=== PATIENT | female | born 1980 | race African-American/Black ===

== ENCOUNTER 2017-01-30 16:49 | Emergency (ER) | payer MEDICARE ==
[~2017-01-30] VITALS: Ht 167.6 cm; Wt 110.6 kg
[2017-01-30 20:14] VITALS: BP 129/65
== END 2017-01-30 20:16 | disposition home or self-care (01) ==
LOC: ED 19:54
DX: N93.8 Other specified abnormal uterine and vaginal bleeding (principal)
CPT/HCPCS: 36415; 84703; 85025; 99284

== ENCOUNTER 2017-04-06 13:25 | Emergency (ER) | payer MEDICARE ==
[~2017-04-06] VITALS: Ht 162.6 cm; Wt 82.5 kg
[2017-04-06] MEDS ORDERED: SODIUM CHLORIDE 0.9% 1,000ML IVBOLUS ONE (14:30)
[2017-04-06] MEDS ORDERED: SODIUM CHLORIDE FLUSH 10ML SYR IVF ONE (14:30)
[2017-04-06] MEDS ORDERED: MECLIZINE CHEWABLE 25 MG TAB PO ONE (14:30)
[2017-04-06] MEDS ORDERED: ONDANSETRON 2MG/ML, 2ML IVPush ONE (14:30)
[2017-04-06 14:46] LABS: BLOOD UREA NITROGEN 9 mg/dL (7-18)
[2017-04-06 14:47] LABS: HEMATOCRIT 35.8 % (34.6-47.8); HEMOGLOBIN 11.4 g/dL (11.7-16.4); WHITE BLOOD COUNT 6.1 x10^3/uL (3.4-10)
[2017-04-06] MEDS ORDERED: MECLIZINE CHEWABLE 25 MG TAB ONE (14:51)
[2017-04-06] MEDS ORDERED: ONDANSETRON 2MG/ML, 2ML ONE (14:51)
[2017-04-06 16:28] VITALS: BP 134/78
== END 2017-04-06 18:10 | disposition home or self-care (01) ==
LOC: ED 14:36
DX: R11.2 Nausea with vomiting, unspecified (principal); R42 Dizziness and giddiness; Z79.82 Long term (current) use of aspirin; Z88.8 Allergy status to other drugs, medicaments and biological substances
CPT/HCPCS: 36415; 80048; 81001; 82040; 84703; 85025; 96361; 96374; 99285; J2405; J7030

== ENCOUNTER 2017-04-19 17:21 | Emergency (ER) | payer MEDICARE ==
[~2017-04-19] VITALS: Ht 167.6 cm; Wt 84.0 kg
[2017-04-19 18:44] LABS: PATH.CAST-FLAG NOT PRESENT; SPERM-FLAG NOT PRESENT; SRC-FLAG NOT PRESENT; XTAL-FLAG NOT PRESENT; YLC-FLAG NOT PRESENT
[2017-04-19 18:55] LABS: HCG UR OBC PASS
[2017-04-19] MEDS ORDERED: IBUPROFEN 200 MG TABLET PO ONE (19:00)
[2017-04-19] MEDS ORDERED: IBUPROFEN 200 MG TABLET ONE (19:06)
[2017-04-19] MEDS ORDERED: CEFDINIR 300 MG CAPSULE PO ONE (19:30)
[2017-04-19 19:59] VITALS: BP 114/76
== END 2017-04-19 20:01 | disposition home or self-care (01) ==
LOC: ED 18:35
DX: N30.00 Acute cystitis without hematuria (principal); M54.5 Low back pain
CPT/HCPCS: 81001; 81025; 87086; 99284

== ENCOUNTER 2017-06-08 16:08 | Emergency (ER) | payer MEDICARE ==
[~2017-06-08] VITALS: Ht 167.6 cm; Wt 84.0 kg
[2017-06-08 16:12] VITALS: BP 110/80
[2017-06-08] MEDS ORDERED: OLAN2.5T3 PO (16:24)
[2017-06-08] MEDS ORDERED: IBUP-1484 PO (16:24)
== END 2017-06-08 16:58 | disposition left against medical advice (07) ==
LOC: ED 16:52
DX: N94.89 Other specified conditions associated with female genital organs and menstrual cycle (principal); Z88.8 Allergy status to other drugs, medicaments and biological substances
CPT/HCPCS: 99283

== ENCOUNTER 2017-08-12 13:34 | Emergency (ER) | payer MEDICARE ==
[~2017-08-12] VITALS: Ht 167.6 cm; Wt 108.5 kg
[~2017-08-12 13:34] MED LIST: IBUP-1484 PO; OLAN2.5T3 PO
[2017-08-12 13:47] VITALS: BP 128/84
[2017-08-12 14:58] LABS: BASOPHILS # (AUTO) 0.03 x10^3/uL (0-0.1); BASOPHILS % (AUTO) 1 % (0-1); EOSINOPHILS # (AUTO) 0.14 x10^3/uL (0-0.4); EOSINOPHILS % (AUTO) 3 % (1-7); LYMPHOCYTES # (AUTO) 2.04 x10^3/uL (1-3.4); LYMPHOCYTES % (AUTO) 40 % (22-44); MD NO; MEAN CORPUSCULAR HEMOGLOBIN 25.9 pg (27.0-34.8); MEAN CORPUSCULAR HGB CONC 31.8 g/dL (32.4-35.8); MEAN CORPUSCULAR VOLUME 81.4 fL (80-100); MEAN PLATELET VOLUME 7.6 fL (7.4-10.4); MONOCYTES # (AUTO) 0.39 x10^3/uL (0.2-0.8); MONOCYTES % (AUTO) 8 % (2-9); NEUTROPHILS # (AUTO) 2.43 x10^3/uL (1.8-6.8); NEUTROPHILS % (AUTO) 48 % (42-75); PLATELET COUNT 371 x10^3/uL (130-400); RED BLOOD COUNT 4.38 x10^6/uL (3.82-5.3); RED CELL DISTRIBUTION WIDTH 16.4 % (9.6-15.2)
[2017-08-12] MEDS ORDERED: IBUPROFEN 200 MG TABLET ONE (15:13)
[2017-08-12] MEDS ORDERED: IBUPROFEN 200 MG TABLET PO ONE (15:30)
[2017-08-12 15:37] LABS: MICROSCOPIC INDICATED
[2017-08-12 15:56] LABS: CULTURE INDICATED? NO
== END 2017-08-12 16:23 | disposition home or self-care (01) ==
LOC: ED 16:20
DX: R10.30 Lower abdominal pain, unspecified (principal); N93.9 Abnormal uterine and vaginal bleeding, unspecified
CPT/HCPCS: 36415; 76830; 81001; 84703; 85025; 99285

== ENCOUNTER 2017-10-11 09:45 | Emergency (ER) | payer MEDICARE ==
[~2017-10-11] VITALS: Ht 167.6 cm; Wt 105.5 kg
[2017-10-11 11:56] LABS: HCG UR SG 1.035 (1.003-1.030)
[2017-10-11 11:57] LABS: MICROSCOPIC INDICATED
[2017-10-11 11:58] LABS: CULTURE INDICATED? YES
[2017-10-11 13:54] VITALS: BP 105/81
== END 2017-10-11 13:56 | disposition home or self-care (01) ==
LOC: ED 12:54
DX: N30.00 Acute cystitis without hematuria (principal); N94.4 Primary dysmenorrhea; F17.200 Nicotine dependence, unspecified, uncomplicated
CPT/HCPCS: 81001; 81025; 87077; 87086; 87186; 99284

== ENCOUNTER 2017-12-11 16:43 | Emergency (ER) | payer MEDICARE ==
[~2017-12-11] VITALS: Ht 177.8 cm; Wt 84.0 kg
[2017-12-11 16:48] VITALS: BP 129/84
[2017-12-11 17:08] LABS: BASOPHILS % (AUTO) 2 % (0-1); EOSINOPHILS # (AUTO) 0.13 x10^3/uL (0-0.4); EOSINOPHILS % (AUTO) 2 % (1-7); LYMPHOCYTES # (AUTO) 2.69 x10^3/uL (1-3.4); LYMPHOCYTES % (AUTO) 41 % (22-44); MD NO; MEAN CORPUSCULAR HEMOGLOBIN 25.3 pg (27.0-34.8); MEAN CORPUSCULAR HGB CONC 31.7 g/dL (32.4-35.8); MEAN PLATELET VOLUME 7.5 fL (7.4-10.4); MONOCYTES # (AUTO) 0.46 x10^3/uL (0.2-0.8); MONOCYTES % (AUTO) 7 % (2-9); NEUTROPHILS # (AUTO) 3.23 x10^3/uL (1.8-6.8); NEUTROPHILS % (AUTO) 49 % (42-75); PLATELET COUNT 450 x10^3/uL (130-400); RED BLOOD COUNT 4.51 x10^6/uL (3.82-5.3)
[2017-12-11 17:17] LABS: ALBUMIN 3.8 g/dL (3.4-5.0); ANION GAP 12 mmol/L (5-15); CHLORIDE 107 mmol/L (98-107); CREATININE 1.05 mg/dL (0.55-1.02)
== END 2017-12-11 17:43 | disposition home or self-care (01) ==
LOC: ED 17:30
DX: N92.4 Excessive bleeding in the premenopausal period (principal); F31.9 Bipolar disorder, unspecified; F20.9 Schizophrenia, unspecified
CPT/HCPCS: 36415; 80048; 82040; 84702; 85025; 99284

== ENCOUNTER 2017-12-14 12:03 | Emergency (ER) | payer MEDICARE ==
[~2017-12-14] VITALS: Ht 167.6 cm; Wt 84.1 kg
[2017-12-14 12:06] VITALS: BP 113/69
== END 2017-12-14 12:20 | disposition home or self-care (01) ==
LOC: ED 12:14
DX: N93.9 Abnormal uterine and vaginal bleeding, unspecified (principal)
CPT/HCPCS: 99283

== ENCOUNTER 2018-02-25 10:52 | Emergency (ER) | payer MEDICARE ==
[~2018-02-25] VITALS: Ht 167.6 cm; Wt 105.5 kg
[2018-02-25 11:02] VITALS: BP 134/92
[2018-02-25 11:40] LABS: HCG UR SG 1.021 (1.003-1.030)
== END 2018-02-25 12:04 | disposition home or self-care (01) ==
LOC: ED 11:58
DX: N94.6 Dysmenorrhea, unspecified (principal)
CPT/HCPCS: 81025; 99285

== ENCOUNTER 2018-05-12 08:31 | Emergency (ER) | payer MEDICARE ==
[~2018-05-12] VITALS: Ht 167.6 cm; Wt 100.0 kg
[2018-05-12 09:41] LABS: MEAN CORPUSCULAR VOLUME 70.9 fL (80-100); MEAN PLATELET VOLUME 7.7 fL (7.4-10.4); PLATELET COUNT 481 x10^3/uL (130-400); RED BLOOD COUNT 4.44 x10^6/uL (3.82-5.3); RED CELL DISTRIBUTION WIDTH 19.2 % (9.6-15.2)
[2018-05-12 09:43] LABS: ALBUMIN 3.4 g/dL (3.4-5.0); ANION GAP 9 mmol/L (5-15); CALCIUM 8.3 mg/dL (8.5-10.1); CHLORIDE 111 mmol/L (98-107); CREATININE 0.88 mg/dL (0.55-1.02)
[2018-05-12 09:56] LABS: MD YES
[2018-05-12 09:58] LABS: ANISOCYTOSIS 1+; EOS#(MANUAL) 0.16 x10^3/uL (0.0-0.4); EOS% (MANUAL) 3 % (1-7); HYPOCHROMIA 1+; LYMPH#(MANUAL) 1.78 x10^3/uL (1-3.4); LYMPHS% (MANUAL) 33 % (22-44); MICROCYTOSIS 1+; MONOS#(MANUAL) 0.27 x10^3/uL (0.3-2.7); MONOS% (MANUAL) 5 % (2-9); OVALOCYTES 1+; SEG#(MANUAL) 3.19 x10^3/uL (1.8-6.8); SEGS% (MANUAL) 59 % (42-75)
[2018-05-12 09:59] LABS: <PLATELET ESTIMATE> INCREASED; <PLT MORPHOLOGY> NORMAL PLT MORPH; POLYCHROMASIA 1+; TARGET CELLS 1+
[2018-05-12 12:15] LABS: MICROSCOPIC AUTO
[2018-05-12 12:20] LABS: CULTURE INDICATED? NO
[2018-05-12 13:16] VITALS: BP 120/80
== END 2018-05-12 13:28 | disposition home or self-care (01) ==
LOC: ED 08:56
DX: O46.91 Antepartum hemorrhage, unspecified, first trimester (principal); Z3A.08 8 weeks gestation of pregnancy
CPT/HCPCS: 36415; 80048; 81001; 82040; 84703; 85025; 99284

== ENCOUNTER 2018-05-19 19:30 | Emergency (ER) | payer MEDICARE ==
[~2018-05-19] VITALS: Ht 167.6 cm; Wt 105.3 kg
[2018-05-19 19:41] VITALS: BP 123/80
[2018-05-19] MEDS ORDERED: BACITRACIN ZINC OINT 500U/GM, 0.9 GM ONE (20:30)
[2018-05-19] MEDS ORDERED: DIPH,PERTUSS(ACELL),TET VAC/PF 0.5 ML IM-VACC ONE ×2 (20:30→20:43)
== END 2018-05-19 21:00 | disposition home or self-care (01) ==
LOC: ED 19:59
DX: S91.111D Laceration without foreign body of right great toe without damage to nail, subsequent encounter (principal)
CPT/HCPCS: 90471; 90715

== ENCOUNTER 2018-05-30 15:12 | Emergency (ER) | payer MEDICARE ==
[~2018-05-30] VITALS: Ht 167.6 cm; Wt 104.0 kg
[2018-05-30 15:14] VITALS: BP 133/90
[2018-05-30] MEDS ORDERED: BACITRACIN ZINC OINT 500U/GM, 0.9 GM ONE (15:48)
== END 2018-05-30 15:54 | disposition home or self-care (01) ==
LOC: ED 15:48
DX: Z48.02 Encounter for removal of sutures (principal); F29 Unspecified psychosis not due to a substance or known physiological condition; F20.9 Schizophrenia, unspecified; M54.30 Sciatica, unspecified side
CPT/HCPCS: 99281

== ENCOUNTER 2018-06-09 17:54 | Emergency (ER) | payer MEDICARE ==
[~2018-06-09] VITALS: Ht 167.6 cm; Wt 105.5 kg
[2018-06-09 18:03] VITALS: BP 132/96
== END 2018-06-09 18:44 | disposition home or self-care (01) ==
LOC: ED 18:00
DX: N94.89 Other specified conditions associated with female genital organs and menstrual cycle (principal); G47.00 Insomnia, unspecified; F31.9 Bipolar disorder, unspecified; F20.9 Schizophrenia, unspecified; F17.200 Nicotine dependence, unspecified, uncomplicated
CPT/HCPCS: 99283

== ENCOUNTER 2018-08-05 10:22 | Outpatient (CLI) | payer MEDICARE | END 2018-08-05 10:36 | disposition home or self-care (01) | LOC: LDOP 10:22 | PROVIDERS: ATTEND Obstetrics & Gynecology | DX: Z02.9 Encounter for administrative examinations, unspecified (principal) ==

== ENCOUNTER 2018-08-05 10:40 | Emergency (ER) | payer MEDICARE ==
[~2018-08-05] VITALS: Ht 167.6 cm; Wt 84.0 kg
[2018-08-05 11:11] VITALS: BP 125/72
== END 2018-08-05 12:10 | disposition home or self-care (01) ==
LOC: ED 11:32
DX: N94.6 Dysmenorrhea, unspecified (principal); F20.9 Schizophrenia, unspecified; F31.9 Bipolar disorder, unspecified; Z88.8 Allergy status to other drugs, medicaments and biological substances
CPT/HCPCS: 99281

== ENCOUNTER 2018-10-04 11:54 | Emergency (ER) | payer MEDICARE ==
[~2018-10-04] VITALS: Ht 167.6 cm; Wt 100.2 kg
[2018-10-04 13:10] LABS: BASOPHILS # (AUTO) 0.04 x10^3/uL (0-0.1); BASOPHILS % (AUTO) 1 % (0-1); EOSINOPHILS # (AUTO) 0.16 x10^3/uL (0-0.4); EOSINOPHILS % (AUTO) 4 % (1-7); LYMPHOCYTES # (AUTO) 2.02 x10^3/uL (1-3.4); LYMPHOCYTES % (AUTO) 45 % (22-44); MD NO; MEAN CORPUSCULAR HEMOGLOBIN 22.9 pg (27.0-34.8); MEAN CORPUSCULAR HGB CONC 30.8 g/dL (32.4-35.8); MEAN CORPUSCULAR VOLUME 74.3 fL (80-100); MEAN PLATELET VOLUME 7.7 fL (7.4-10.4); MONOCYTES # (AUTO) 0.42 x10^3/uL (0.2-0.8); MONOCYTES % (AUTO) 9 % (2-9); NEUTROPHILS # (AUTO) 1.81 x10^3/uL (1.8-6.8); NEUTROPHILS % (AUTO) 41 % (42-75); PLATELET COUNT 427 x10^3/uL (130-400); RED BLOOD COUNT 4.29 x10^6/uL (3.82-5.3); RED CELL DISTRIBUTION WIDTH 21.6 % (9.6-15.2)
[2018-10-04 13:22] LABS: ALBUMIN 3.4 g/dL (3.4-5.0); ANION GAP 7 mmol/L (5-15); CALCIUM 8.1 mg/dL (8.5-10.1); CHLORIDE 106 mmol/L (98-107)
[2018-10-04 13:27] LABS: CREATININE 0.99 mg/dL (0.55-1.02)
--- NOTE | 2018-10-04 14:06 | NUR ---
TO ROOM 41
--- NOTE | 2018-10-04 14:13 | NUR ---
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 Pt stated that she had a US and it says there is a fetus in her belly. Pt does not look 9 months . Pt stated that she has vaginal bleeding. Denies pain. Pt is connected to the monitor. Call light within reach.
[2018-10-04 14:29] VITALS: BP 135/68
--- NOTE | 2018-10-04 15:16 | NUR ---
Patient given discharge instructions and they have confirmed that they understand the instructions. Patient ambulatory with steady gait.
== END 2018-10-04 15:18 | disposition home or self-care (01) ==
LOC: ED 14:39
DX: F20.1 Disorganized schizophrenia (principal); N94.4 Primary dysmenorrhea; D50.0 Iron deficiency anemia secondary to blood loss (chronic)
CPT/HCPCS: 36415; 76815; 80048; 82040; 84702; 85025; 86901; 99284

== ENCOUNTER 2019-03-12 06:15 | Emergency (ER) | payer MEDICARE ==
[~2019-03-12] VITALS: Ht 167.6 cm; Wt 101.5 kg
[~2019-03-12 06:15] MED LIST changes: -IBUP-1484 PO; +IBUP-1902 PO
[2019-03-12 06:33] VITALS: BP 127/71
--- NOTE | 2019-03-12 06:34 | NUR ---
"I HAVE ABDOMINAL CRAMPING AND I CAN'T WAKE UP, I JUST KEEP FALLING ASLEEP." STATES "SINCE THE ". MONITORS APPLIED, SIDERAILS UP X2, CALL LIGHT WITHIN REACH
--- NOTE | 2019-03-12 06:37 | NUR ---
PROVIDED PT WITH URINE CUP FOR SAMPLE, PT UP TO RR WITH STEADY GAIT
--- NOTE | 2019-03-12 06:44 | NUR ---
URINE SAMPLE SENT
[2019-03-12 06:53] LABS: MICROSCOPIC INDICATED
--- NOTE | 2019-03-12 06:53 | NUR ---
REPORT TAKEN FROM DARCY DICKINSON. PT RESTING ON [facility]. JUSTICE. [place]. DENIES NEEDS. CALL LIGHT IN REACH.
--- NOTE | 2019-03-12 06:54 | NUR ---
REPORT GIVEN TO DARCY NOYOLA
--- NOTE | 2019-03-12 07:29 | NUR ---
PT TO XRAY AT THIS TIME.
== END 2019-03-12 07:54 | disposition home or self-care (01) ==
LOC: ED 06:34
DX: R10.84 Generalized abdominal pain (principal); K59.00 Constipation, unspecified; F20.9 Schizophrenia, unspecified; F17.200 Nicotine dependence, unspecified, uncomplicated
CPT/HCPCS: 74018; 81001; 99284

== ENCOUNTER 2019-07-05 10:27 | Emergency (ER) | payer MEDICARE ==
[~2019-07-05] VITALS: Ht 167.6 cm; Wt 97.9 kg
[2019-07-05 10:30] VITALS: BP 133/84
--- NOTE | 2019-07-05 11:08 | NUR ---
THIS IS A 39 YO F WHO PRESENTS WITH C/O VAGINAL BLEEDING ONCE EVERY MONTH FOR APPROXIMATELY 10 DAYS. HER RESPIRATIONS ARE EVEN AND UNLABORED. SHE IS IN NO ACUTE DISTRESS.
--- NOTE | 2019-07-05 11:54 | NUR ---
PATIENT BACK FROM US, LABS BEING DRAWN.
[2019-07-05 12:18] LABS: BASOPHILS % (AUTO) 0 % (0-1); EOSINOPHILS % (AUTO) 2 % (1-7); LYMPHOCYTES # (AUTO) 1.93 x10^3/uL (1-3.4); LYMPHOCYTES % (AUTO) 37 % (22-44); MD NO; MEAN CORPUSCULAR HEMOGLOBIN 23.2 pg (27.0-34.8); MEAN CORPUSCULAR HGB CONC 30.6 g/dL (32.4-35.8); MEAN CORPUSCULAR VOLUME 75.8 fL (80-100); MEAN PLATELET VOLUME 7.5 fL (7.4-10.4); MONOCYTES % (AUTO) 8 % (2-9); NEUTROPHILS # (AUTO) 2.72 x10^3/uL (1.8-6.8); NEUTROPHILS % (AUTO) 53 % (42-75); PLATELET COUNT 454 x10^3/uL (130-400); RED BLOOD COUNT 4.36 x10^6/uL (3.82-5.3)
--- NOTE | 2019-07-05 13:04 | NUR ---
Patient given discharge instructions and they have confirmed that they understand the instructions. Patient ambulatory with steady gait.
== END 2019-07-05 13:05 | disposition home or self-care (01) ==
LOC: ED 10:54
DX: N93.9 Abnormal uterine and vaginal bleeding, unspecified (principal)
CPT/HCPCS: 36415; 76830; 84703; 85025; 99284

== ENCOUNTER 2019-07-22 16:27 | Emergency (ER) | payer MEDICARE ==
[~2019-07-22] VITALS: Ht 167.6 cm; Wt 113.0 kg
[2019-07-22 16:52] VITALS: BP 132/69
[2019-07-22 18:04] LABS: ALBUMIN 3.5 g/dL (3.4-5.0); ANION GAP 9 mmol/L (5-15); CALCIUM 8.6 mg/dL (8.5-10.1); CHLORIDE 107 mmol/L (98-107); CREATININE 0.84 mg/dL (0.55-1.02)
[2019-07-22 18:21] LABS: MEAN CORPUSCULAR HEMOGLOBIN 23.2 pg (27.0-34.8); MEAN CORPUSCULAR HGB CONC 30.3 g/dL (32.4-35.8); MEAN CORPUSCULAR VOLUME 76.7 fL (80-100); MEAN PLATELET VOLUME 7.4 fL (7.4-10.4); PLATELET COUNT 420 x10^3/uL (130-400); RED BLOOD COUNT 4.41 x10^6/uL (3.82-5.3); RED CELL DISTRIBUTION WIDTH 19.5 % (9.6-15.2)
--- NOTE | 2019-07-22 18:43 | NUR ---
PT SLEEPING IN GURNEY, EQUAL CHEST RISE AND FALL, CALL LIGHT WTIHIN REACH. AWAITING LAB RESULTS.
[2019-07-22 18:46] LABS: BASOPHILS # (AUTO) 0.05 x10^3/uL (0-0.1); BASOPHILS % (AUTO) 1 % (0-1); EOSINOPHILS # (AUTO) 0.22 x10^3/uL (0-0.4); EOSINOPHILS % (AUTO) 3 % (1-7); LYMPHOCYTES # (AUTO) 2.07 x10^3/uL (1-3.4); LYMPHOCYTES % (AUTO) 32 % (22-44); MD MORPH REVIEW ONLY; MONOCYTES # (AUTO) 0.65 x10^3/uL (0.2-0.8); MONOCYTES % (AUTO) 10 % (2-9); NEUTROPHILS % (AUTO) 55 % (42-75)
[2019-07-22 18:50] LABS: <PLATELET ESTIMATE> INCREASED; HYPOCHROMIA 2+; MICROCYTOSIS 2+; OVALOCYTES 1+; SMALL PLATELETS 1+
== END 2019-07-22 18:54 | disposition home or self-care (01) ==
LOC: ED 18:48
DX: N93.8 Other specified abnormal uterine and vaginal bleeding (principal); D64.9 Anemia, unspecified
CPT/HCPCS: 36415; 80048; 82040; 84703; 85025; 99283

== ENCOUNTER 2019-07-28 07:55 | Outpatient (CLI) | payer MEDICARE | END 2019-07-28 08:01 | disposition home or self-care (01) | LOC: LDOP 07:55 | PROVIDERS: ATTEND Obstetrics & Gynecology | DX: Z02.9 Encounter for administrative examinations, unspecified (principal) ==

== ENCOUNTER 2019-07-28 08:07 | Emergency (ER) | payer MEDICARE ==
[~2019-07-28] VITALS: Ht 167.6 cm; Wt 100.6 kg
[2019-07-28 08:24] VITALS: BP 116/69
--- NOTE | 2019-07-28 08:56 | NUR ---
[facility]
--- NOTE | 2019-07-28 08:57 | NUR ---
PT AMBULATORY TO ROOM WITH STEADY GAIT. PT EDUCATED ON NEED TO CHANGE INTO GOWN, PT REFUSED TO CHANGE I TO GOWN, STATING SHE IS ONLY HERE TO BE DISCHARGED. EDUCATION PROVIDED, PT REFUSING TO ANSWER THIS RN'S QUESTIONS.
--- NOTE | 2019-07-28 09:20 | NUR ---
PA AT BEDSIDE, PT REFUSING TO BE SEEN, STATING HER VISIT "SHOULD BE COVERED PRO-KITA BECAUSE UPSTAIRS SENT ME HERE." PT ELOPED WITHOUT BEING EXAMINED BY PROVIDER. LOOP DRIER OPERATOR AWARE.
== END 2019-07-28 09:23 | disposition left against medical advice (07) ==
LOC: ED 09:17
DX: Z53.21 Procedure and treatment not carried out due to patient leaving prior to being seen by health care provider (principal)

== ENCOUNTER 2019-08-09 13:18 | Emergency (ER) | payer MEDICARE ==
[~2019-08-09] VITALS: Ht 165.1 cm; Wt 108.0 kg
[2019-08-09 13:28] VITALS: BP 136/78
--- NOTE | 2019-08-09 13:32 | NUR ---
PT WAS BIB BY [facility]. STATES "I AM FINE. I JUST WANT TO GET MY HEART CHECKED AND I WANT A NOTE THAT SAYS I CAN WORK." PT HAS REFUSED BLOOD DRAWS TWICE. WARM BLANKET PROVIDED. CALL LIGHT WITHIN REACH
--- NOTE | 2019-08-09 13:45 | NUR ---
PT REFUSED X RAY SHOUTED VERBAL OBSCENITIES TO THE GEOSPATIAL ENGINEER
--- NOTE | 2019-08-09 13:59 | NUR ---
task rn, assisted primary with discharge.
== END 2019-08-09 14:01 | disposition home or self-care (01) ==
LOC: ED 13:55
DX: R06.00 Dyspnea, unspecified (principal); R05 Cough
CPT/HCPCS: 93005; 99283

== ENCOUNTER 2019-08-13 09:41 | Emergency (ER) | payer MEDICARE ==
[~2019-08-13] VITALS: Ht 167.6 cm; Wt 102.6 kg
[2019-08-13 09:44] VITALS: BP 132/81
== END 2019-08-13 10:26 | disposition home or self-care (01) ==
LOC: ED 10:15
DX: J02.9 Acute pharyngitis, unspecified (principal)
CPT/HCPCS: 93005; 99283

== ENCOUNTER 2019-08-31 06:13 | Emergency (ER) | payer MEDICARE ==
[~2019-08-31] VITALS: Ht 167.6 cm; Wt 102.5 kg
[2019-08-31 06:17] VITALS: BP 125/86
--- NOTE | 2019-08-31 06:57 | NUR ---
PT CARE AUSSUMED. PT RESTING ON GURNEY. NO DISTRESS. PT AWARE OF PENDING CHEST XRAY. PT REQUESTS FACE MASK. MASK GIVEN
== END 2019-08-31 09:10 | disposition home or self-care (01) ==
LOC: ED 07:02
DX: B35.4 Tinea corporis (principal); B34.9 Viral infection, unspecified; Z98.51 Tubal ligation status
CPT/HCPCS: 71046; 99283

== ENCOUNTER 2020-09-10 05:18 | Emergency (ER) | payer MEDICARE ==
[~2020-09-10] VITALS: Ht 167.6 cm; Wt 100.5 kg
--- NOTE | 2020-09-10 06:05 | NUR ---
Pt in room, agitated, yelling at times, difficulty to get information from. Pt free of harm. Will monitor.
[2020-09-10 06:15] LABS: HCG UR SG 1.027 (1.003-1.030)
[2020-09-10 06:19] LABS: MICROSCOPIC INDICATED
--- NOTE | 2020-09-10 06:32 | NUR ---
US at bedside.
[2020-09-10 06:47] VITALS: BP 127/67
--- NOTE | 2020-09-10 06:49 | NUR ---
Pt dc'd with written and verbal DC instructions. Pt states she understands. Pt dressed and ambulatory out of dept without difficulty. Pt given socks. And home with all belongings.
== END 2020-09-10 06:54 | disposition home or self-care (01) ==
LOC: ED 06:04
DX: N93.8 Other specified abnormal uterine and vaginal bleeding (principal)
CPT/HCPCS: 76830; 81001; 81025; 87086; 87147; 99284

== ENCOUNTER 2020-12-01 09:24 | Emergency (ER) | payer MEDICARE ==
[~2020-12-01] VITALS: Ht 167.6 cm; Wt 96.6 kg
[2020-12-01 09:40] VITALS: BP 116/71
--- NOTE | 2020-12-01 10:15 | NUR ---
TO JOCELYN FROM LOBBY
--- NOTE | 2020-12-01 10:25 | NUR ---
PT CHANGED INTO GOWN, MONITORS IN PLACE. CALL LIGHT WITHIN REACH
--- NOTE | 2020-12-01 10:27 | NUR ---
PA AT BS
[2020-12-01] MEDS ORDERED: DIPH,PERTUSS(ACELL),TET VAC/PF 0.5 ML IM-VACC ONE ×2 (10:30→10:31)
[2020-12-01] MEDS ORDERED: NEOSPORIN OINT. PKT 1 PACKET ONE (10:44)
--- NOTE | 2020-12-01 10:54 | NUR ---
Patient given discharge instructions and RX, they have confirmed that they understand the instructions. Patient ambulatory with steady gait. PT ALSO GIVEN FOLLOW UP INFORMATION FOR DIRECTOR OF DIAGNOSTIC IMAGING
== END 2020-12-01 11:02 | disposition home or self-care (01) ==
LOC: ED 10:45
DX: T22.10XA Burn of first degree of shoulder and upper limb, except wrist and hand, unspecified site, initial encounter (principal); B35.3 Tinea pedis; F17.210 Nicotine dependence, cigarettes, uncomplicated; X10.2XXA Contact with fats and cooking oils, initial encounter; Y93.89 Activity, other specified; Y92.89 Other specified places as the place of occurrence of the external cause; Y99.8 Other external cause status
CPT/HCPCS: 16020; 90471; 90715; 99283; 99406

== ENCOUNTER 2021-01-28 05:42 | Emergency (ER) | payer MEDICARE ==
[~2021-01-28] VITALS: Ht 167.6 cm; Wt 89.0 kg
--- NOTE | 2021-01-28 06:16 | NUR ---
pt present to ed with vaginal bleed. pt states that she has had bleeding for 5 days now and it appears to be black. erp at bedside. pt in gown and placed on continuous monitoring.
--- NOTE | 2021-01-28 06:48 | NUR ---
GAVE REPORT TO DARCY ORO AND DARCY TILLMAN
[2021-01-28 06:50] LABS: BASOPHILS % (AUTO) 1 % (0-1); EOSINOPHILS % (AUTO) 3 % (1-7); LYMPHOCYTES % (AUTO) 41 % (22-44); MEAN CORPUSCULAR HEMOGLOBIN 21.5 pg (27.0-34.8); MEAN PLATELET VOLUME 7.2 fL (7.4-10.4); MONOCYTES % (AUTO) 9 % (2-9); NEUTROPHILS % (AUTO) 46 % (42-75); PLATELET COUNT 483 x10^3/uL (130-400); RED BLOOD COUNT 4.47 x10^6/uL (3.82-5.3); RED CELL DISTRIBUTION WIDTH 20.3 % (9.6-15.2)
--- NOTE | 2021-01-28 06:57 | NUR ---
report received from maria del carmen serrano. pt a&o, resps even and unlabored, veronique wright.
[2021-01-28 07:11] VITALS: BP 126/86
--- NOTE | 2021-01-28 07:12 | NUR ---
pt sitting up in bed, a&o, resps even and unlabored, vss, nadn. awaiting lab results and dispo
--- NOTE | 2021-01-28 07:47 | NUR ---
pt eductaed on discharge, follow-up, return criteria, and prescription, verbalized understanding. pt a&o, resps even and unlabored, vss, nadn. ambulatory to discharge with steady gait.
== END 2021-01-28 07:50 | disposition home or self-care (01) ==
LOC: ED 07:44
DX: D50.9 Iron deficiency anemia, unspecified (principal); N92.0 Excessive and frequent menstruation with regular cycle
CPT/HCPCS: 36415; 84703; 85025; 99283